=== PATIENT | female | born 1995 | race Caucasian/White ===

== ENCOUNTER 2019-03-29 11:00 | Emergency (ER) | payer BC ==
--- NOTE | 2019-03-29 11:56 | EDM.PDOC ---
ED HPI GENERAL MEDICAL PROBLEM - General Chief Complaint: Trauma Stated Complaint: 37 WKS PG AND FELL ON ICE Time Seen by Provider: 03/29/19 11:03 Source of Information: Reports: Patient - History of Present Illness INITIAL COMMENTS - FREE TEXT/NARRATIVE: Patient states that within half an hour prior to arrival, she tripped over a pipe or something similar to a pipe that was on the ground. She fell forwards. She landed on her left knee; and as she tried to get up, she struck her chin on the ground. She does not recall bumping her abdomen into the ground, but thinks she might have because she says she noticed thrown on her blouse. She denies loss of consciousness. She also denies neck or back pain. She denies abdominal pain or cramping. No vaginal bleeding or discharge. She says she is about 35 weeks she denies a sensation of contractions or pelvic pressure. Reports a 3 out of 10 headache. She says her last tetanus vaccination was a few months ago. Review of Systems - Review of Systems Review Of Systems: See Below Eyes: Denies: Blurred Vision Ears: Denies: Dizziness Nose: Denies: Epistaxis Cardiovascular: Denies: Chest Pain, Lightheadedness, Palpitations GI/Abdominal: Denies: Abdominal Pain Neurological: Reports: Headache. Denies: Confusion, Numbness, Paresthesia, Tingling ED EXAM, GENERAL - Physical Exam Exam: See Below Free Text/Narrative:: General: alert, well appearing, no acute distress HEENT: Normocephalic. Few abrasions on the anterior chin. No facial deformity , swelling, tenderness. No bony tenderness. No loose teeth. No intraoral lacerations or abrasions. Handling oral secretions well., pupils reactive, negative for conjunctival pallor or scleral icterus, mucous membranes moist, throat clear, handling oral secretions well. Neck: supple, nontender, trachea midline. Lungs: Clear to auscultation, breath sounds equal bilaterally, chest nontender. Heart: S1S2, regular, negative for clicks, rubs, or JVD. Abdomen: Soft, gravid, otherwise nondistended, nontender. Negative for masses or hepatosplenomegaly. No abrasions, ecchymoses, lacerations. Skin: warm, dry, good turgor. No abrasions apart from chin abrasions. No ecchymoses. Musculoskeletal: soft compartments. Extremities: Atraumatic, negative for cords or calf pain. Neurovascular unremarkable. Neuro: Awake, alert, oriented. Cranial nerves II through XII unremarkable. Cerebellum unremarkable. Motor and sensory unremarkable throughout. Exam nonfocal. heart tones checked during the exam and were found to be 140. Course - Vital Signs Text/Narrative:: 11:41 AM MELVIN Garcia, OB nurse, came to the emergency department. She states that patient's monitoring strip shows no contractions. heart rate 140. Normal activity 12:03pm Case d/w Melva Diaz, on-call nurse pathology technician. Accepts patient for 4 hours of monitoring. Will discharge patient from ED now, and then she will go upstairs to labor and delivery for 4 hours of monitoring. - Orders/Labs/Meds Orders: Active Orders 24 hr Category Date Time Status Communication Order [RC] STAT Care 03/29/19 11:57 Active Meds: Medications Discontinued Medications Generic Name Dose Route Start Last Admin Trade Name Freq PRN Reason Stop Dose Admin Acetaminophen 500 mg 03/29/19 11:57 Tylenol Extra Strength PO 03/29/19 11:58 ONETIME ONE Departure - Departure Time of Disposition: 12:04 Disposition: Refer to Observation Condition: Good Clinical Impression: Facial abrasion Qualifiers: Encounter type: initial encounter Qualified Code(s): S00.81XA - Abrasion of other part of head, initial encounter Headache Qualifiers: Headache type: other headache syndrome Qualified Code(s): G44.89 - Other headache syndrome - Discharge Information Instructions: Head Injury, Adult, [id number], Wound Care, Adult Referrals: Radha Pan MD [Primary Care Provider] - (Immediately upon discharge from the emergency department, please go to the labor and delivery unit. You will need to stay there for 4 hours of monitoring of your baby.) Forms: ED Department Discharge Sepsis Event Note - Focused Exam Date Exam was Performed: 03/29/19 Time Exam was Performed: 12:04 - My Orders Last 24 Hours: My Active Orders 03/29/19 11:57 Communication Order [RC] STAT - Assessment/Plan Last 24 Hours: My Active Orders 03/29/19 11:57 Communication Order [RC] STAT
[2019-03-29] MEDS ORDERED: Acetaminophen 500 MG Tab PO ONE (11:57)
== END 2019-03-29 12:15 | disposition other institution (70) ==
LOC: MW.ED 11:00
DX: O9A.213 Injury, poisoning and certain other consequences of external causes complicating pregnancy, third trimester (principal); S00.81XA Abrasion of other part of head, initial encounter; O99.353 Diseases of the nervous system complicating pregnancy, third trimester; G44.89 Other headache syndrome; Z3A.35 35 weeks gestation of pregnancy; W01.198A Fall on same level from slipping, tripping and stumbling with subsequent striking against other object, initial encounter
CPT/HCPCS: 99284; A9270; 99283

== ENCOUNTER 2019-04-11 03:49 | Inpatient (IN) | payer BC ==
[2019-04-11] MEDS ORDERED: Nalbuphine 10 MG/1 ML Vial IVPUSH PRN (04:19)
[2019-04-11] MEDS ORDERED: Misoprostol 200 MCG Tab PO PRN (04:19)
[2019-04-11] MEDS ORDERED: Carboprost Tromethamine 250 MCG/1 ML Amp IM PRN (04:19)
[2019-04-11] MEDS ORDERED: Sodium Chloride 0.9% 2.5 ML Syringe FLUSH PRN (04:19)
[2019-04-11] MEDS ORDERED: Methylergonovine 0.2 MG/1 ML Amp IM PRN ×2 (04:19→08:56)
[2019-04-11] MEDS ORDERED: Butorphanol 1 MG/ML SDV IVPUSH PRN (04:19)
[2019-04-11] MEDS ORDERED: Water For Irrigation,Sterile 1,000 ML Container IRR PRN (04:19)
[2019-04-11] MEDS ORDERED: Lidocaine 1% 50 ML MDV INJECT PRN (04:19)
[2019-04-11] MEDS ORDERED: Tranexamic Acid 1,000 MG in Sodium Chloride 0.9% 100 ML IV PRN ×2 (04:19→08:56)
[2019-04-11] MEDS ORDERED: Sodium Chloride 0.9% 10 ML SDV IV PRN (04:19)
[2019-04-11] MEDS ORDERED: Sodium Chloride 0.9% 10 ML Syringe FLUSH PRN (04:19)
[2019-04-11] MEDS ORDERED: Oxytocin/0.9 % Sodium Chloride 30 UNIT/500 ML BAG IV SCH (04:30)
[2019-04-11] MEDS ORDERED: Ondansetron 4 MG/2 ML SDV IVPUSH PRN (04:38)
[2019-04-11] MEDS ORDERED: Terbutaline 1 MG/ML SDV ONE (04:49)
[2019-04-11] MEDS: Lactated Ringers 1,000 ML IV SCH ×2 (04:57→06:01)
[2019-04-11] MEDS ORDERED: fentaNYL 100 MCG/2 ML SDV ONE (05:09)
[2019-04-11] MEDS ORDERED: Ropivacaine 0.2% PF 2 MG/ML 20 ML SDV ONE (05:09)
[2019-04-11] MEDS ORDERED: Ropivacaine HCl/PF 100 ML ONE (05:10)
--- NOTE | 2019-04-11 06:04 | PCM.PREANE ---
Preanesthetic Assessment - Procedure Proposed Procedure: BRAD - Anesthesia/Transfusion/Family Hx Anesthesia History: Prior Anesthesia Without Reaction Family History of Anesthesia Reaction: No Transfusion History: No Prior Transfusion(s) Type of Transfusion Reactions: Reports: Unknown Intubation History: Unknown Additional History: . Active labor. decel episode. Called for , HT stablized. Changed to Labor Epidural. - Review of Systems General: No Symptoms Pulmonary: No Symptoms Cardiovascular: No Symptoms Gastrointestinal: No Symptoms Neurological: No Symptoms Other: Reports: Anxiety - Physical Assessment NPO Status Date: 04/11/19 (liquids) NPO Status Time: 04:30 Vital Signs: See nurses Notes Height: 1.63 m Weight: 70.307 kg ASA Class: 2 Mental Status: Alert & Oriented x3 Airway Class: Mallampati = 1 Dentition: Reports: Normal Dentition Thyro-Mental Finger Breadths: 3 Mouth Opening Finger Breadths: 3 ROM/Head Extension: Full Lungs: Clear to Auscultation Cardiovascular: Regular Rate - Lab Values: Laboratory Last Values WBC 13.01 K/uL (4.0-11.0) H 04/11/19 04:40 RBC 4.00 M/uL (4.30-5.90) L 04/11/19 04:40 Hgb 12.4 g/dL (12.0-16.0) 04/11/19 04:40 Hct 37.1 % (36.0-46.0) 04/11/19 04:40 MCV 92.8 fL (80.0-98.0) 04/11/19 04:40 MCH 31.0 pg (27.0-32.0) 04/11/19 04:40 MCHC 33.4 g/dL (31.0-37.0) 04/11/19 04:40 RDW Std Deviation 47.7 fl (28.0-62.0) 04/11/19 04:40 RDW Coeff of Susan 14 % (11.0-15.0) 04/11/19 04:40 Plt Count 243 K/uL (150-400) 04/11/19 04:40 MPV 10.10 fL (7.40-12.00) 04/11/19 04:40 Nucleated RBC % 0.0 /100WBC 04/11/19 04:40 Nucleated RBCs # 0 K/uL 04/11/19 04:40 Membrane Rupture NEGATIVE 04/11/19 04:00 Blood Type O POSITIVE 04/11/19 04:40 Antibody Screen NEGATIVE 04/11/19 04:40 - Allergies Allergies/Adverse Reactions: Allergies Allergy/AdvReac Type Severity Reaction Status Date / Time No Known Allergies Allergy Verified 03/29/19 12:06 - Blood Blood Available: No Product(s) Available: None - Anesthesia Plan Pre-Op Medication Ordered: None - Acknowledgements Anesthesia Type Planned: Epidural Pt an Appropriate Candidate for the Planned Anesthesia: Yes Alternatives and Risks of Anesthesia Discussed w Pt/Guardian: Yes Pt/Guardian Understands and Agrees with Anesthesia Plan: Yes Additional Comments: Acceptable for procedure. Chart reviewed, ? answered, permit signed. Will proceed. PreAnesthesia Questionnaire HEENT History: Reports: None Cardiovascular History: Reports: None Respiratory History: Reports: None Gastrointestinal History: Reports: None Genitourinary History: Reports: None CUSTOMS CONSULTANT History: Reports: Musculoskeletal History: Reports: None Neurological History: Reports: None Psychiatric History: Reports: None Endocrine/Metabolic History: Reports: None Hematologic History: Reports: None Immunologic History: Reports: None Oncologic (Cancer) History: Reports: None Dermatologic History: Reports: None - Infectious Disease History Infectious Disease History: Reports: None - Past Surgical History Head Surgeries/Procedures: Reports: None HEENT Surgical History: Reports: None Cardiovascular Surgical History: Reports: None GI Surgical History: Reports: None Female Surgical History: Reports: None Neurological Surgical History: Reports: None Musculoskeletal Surgical History: Reports: None Oncologic Surgical History: Reports: None Dermatological Surgical History: Reports: None - HOME MEDS Home Medications: Home Meds Pnv No.95/Ferrous Fum/Folic AC [ Vitamin Tablet] 1 tab PO DAILY [History] - CURRENT (IN HOUSE) MEDS Current Meds: Current Medications Butorphanol Tartrate (Stadol) 1 mg IVPUSH Q1H PRN PRN Reason: Pain Carboprost Tromethamine (Hemabate Ds) 250 mcg IM ASDIRECTED PRN PRN Reason: Post Hemorrhage Tranexamic Acid 1,000 mg/ (Sodium Chloride) 110 mls @ 660 mls/hr IV ONETIME PRN PRN Reason: Bleeding Lactated Ringer's (Ringers, Lactated) 1,000 mls @ 150 mls/hr IV ASDIRECTED [facility] Last Admin: 04/11/19 04:57 Dose: 150 mls/hr Oxytocin/Sodium Chloride (Oxytocin 30 Unit/500 Ml-Ns) 30 unit in 500 mls @ 999 mls/hr IV TITRATE [facility] Lidocaine HCl (Xylocaine 1%) 50 ml INJECT ONETIME PRN PRN Reason: Laceration repair Methylergonovine Maleate (Methergine) 0.2 mg IM ASDIRECTED PRN PRN Reason: Post Hemorrhage Misoprostol (Cytotec) 200 mcg PO ONETIME PRN PRN Reason: Post Hemorrhage Nalbuphine HCl (Nubain) 10 mg IVPUSH Q1H PRN PRN Reason: Pain (severe 7-10) Ondansetron HCl (Zofran) 4 mg IVPUSH Q6H PRN PRN Reason: Nausea/Vomiting Last Admin: 04/11/19 05:04 Dose: 4 mg Sodium Chloride (Saline Flush) 10 ml FLUSH ASDIRECTED PRN PRN Reason: Keep Vein Open Sodium Chloride (Saline Flush) 2.5 ml FLUSH ASDIRECTED PRN PRN Reason: Keep Vein Open Sodium Chloride (Normal Saline) 10 ml IV ASDIRECTED PRN PRN Reason: IV Use Sterile Water (Sterile Water For Irrigation) 1,000 ml IRR ASDIRECTED PRN PRN Reason: delivery Discontinued Medications Fentanyl (Sublimaze) Confirm Administered Dose 100 mcg .ROUTE .STK-MED ONE Stop: 04/11/19 05:10 Ropivacaine (Naropin 0.2%) Confirm Administered Dose 100 mls @ as directed .ROUTE .STK-MED ONE Stop: 04/11/19 05:11 Ropivacaine (Naropin 0.2%) Confirm Administered Dose 20 ml .ROUTE .STK-MED ONE Stop: 04/11/19 05:10 Terbutaline Sulfate (Brethine) Confirm Administered Dose 1 mg .ROUTE .STK-MED ONE Stop: 04/11/19 04:50 Last Admin: 04/11/19 04:57 Dose: 0.25 mg
--- NOTE | 2019-04-11 06:17 | PCM.SN ---
- Free Text/Narrative Note: Called for STAT for decrease FHT. Upon arrival, FHT normal. , 6cm, active labor, pain 11/19. Discussed, ? answered, permit signed. Fluid bolus in progress. Procedure in sitting position. Tolerated well. No problems noted. Excellent pain control. VSS. FHT stable.
--- NOTE | 2019-04-11 08:55 | PCM.DEL ---
L & D Note - General Info Date of Service: 04/11/19 Mother's Due Date: 04/14/19 - Delivery Note Labor: Spontaneous Delivery Outcome: Livebirth Infant Delivery Method: Spontaneous Vaginal Delivery-Single Presentation: Right Occiput Anterior (VINICIO) Nuchal Cord: Reduced Prep: Other Anesthesia Type: Epidural Amniotic Fluid Description: Meconium Stained Episiotomy Type: None Laceration: None Placenta: Intact, Spontaneous Cord: 3 Vessels Estimated Blood Loss: 200 Resuscitation Needed: No : Suctioned Score 1 min: 8 Score 5 min: 9 Delivery Comments (Free Text/Narrative):: Liveborn male - General Info Date of Service: 04/11/19 - Patient Data Weight - Most Recent: 70.307 kg Lab Results Last 24 Hours: Laboratory Results - last 24 hr 04/11/19 04/11/19 04/11/19 Range/Units 04:00 04:40 04:40 WBC 13.01 H (4.0-11.0) K/uL RBC 4.00 L (4.30-5.90) M/uL Hgb 12.4 (12.0-16.0) g/dL Hct 37.1 (36.0-46.0) % MCV 92.8 (80.0-98.0) fL MCH 31.0 (27.0-32.0) pg MCHC 33.4 (31.0-37.0) g/dL RDW Std Deviation 47.7 (28.0-62.0) fl RDW Coeff of Susan 14 (11.0-15.0) % Plt Count 243 (150-400) K/uL MPV 10.10 (7.40-12.00) fL Nucleated RBC % 0.0 /100WBC Nucleated RBCs # 0 K/uL Membrane Rupture NEGATIVE Blood Type O POSITIVE Antibody Screen NEGATIVE Med Orders - Current: Current Medications Butorphanol Tartrate (Stadol) 1 mg IVPUSH Q1H PRN PRN Reason: Pain Carboprost Tromethamine (Hemabate Ds) 250 mcg IM ASDIRECTED PRN PRN Reason: Post Hemorrhage Tranexamic Acid 1,000 mg/ (Sodium Chloride) 110 mls @ 660 mls/hr IV ONETIME PRN PRN Reason: Bleeding Lactated Ringer's (Ringers, Lactated) 1,000 mls @ 150 mls/hr IV ASDIRECTED [facility] Last Admin: 04/11/19 06:01 Dose: 150 mls/hr Oxytocin/Sodium Chloride (Oxytocin 30 Unit/500 Ml-Ns) 30 unit in 500 mls @ 999 mls/hr IV TITRATE [facility] Lidocaine HCl (Xylocaine 1%) 50 ml INJECT ONETIME PRN PRN Reason: Laceration repair Methylergonovine Maleate (Methergine) 0.2 mg IM ASDIRECTED PRN PRN Reason: Post Hemorrhage Misoprostol (Cytotec) 200 mcg PO ONETIME PRN PRN Reason: Post Hemorrhage Nalbuphine HCl (Nubain) 10 mg IVPUSH Q1H PRN PRN Reason: Pain (severe 7-10) Ondansetron HCl (Zofran) 4 mg IVPUSH Q6H PRN PRN Reason: Nausea/Vomiting Last Admin: 04/11/19 05:04 Dose: 4 mg Sodium Chloride (Saline Flush) 10 ml FLUSH ASDIRECTED PRN PRN Reason: Keep Vein Open Sodium Chloride (Saline Flush) 2.5 ml FLUSH ASDIRECTED PRN PRN Reason: Keep Vein Open Sodium Chloride (Normal Saline) 10 ml IV ASDIRECTED PRN PRN Reason: IV Use Sterile Water (Sterile Water For Irrigation) 1,000 ml IRR ASDIRECTED PRN PRN Reason: delivery Discontinued Medications Fentanyl (Sublimaze) Confirm Administered Dose 100 mcg .ROUTE .STK-MED ONE Stop: 04/11/19 05:10 Ropivacaine (Naropin 0.2%) Confirm Administered Dose 100 mls @ as directed .ROUTE .STK-MED ONE Stop: 04/11/19 05:11 Ropivacaine (Naropin 0.2%) Confirm Administered Dose 20 ml .ROUTE .STK-MED ONE Stop: 04/11/19 05:10 Terbutaline Sulfate (Brethine) Confirm Administered Dose 1 mg .ROUTE .STK-MED ONE Stop: 04/11/19 04:50 Last Admin: 04/11/19 04:57 Dose: 0.25 mg - Problem List & Annotations (1) Vaginal delivery SNOMED Code(s): 892841939 Code(s): O80 - ENCOUNTER FOR FULL-TERM UNCOMPLICATED DELIVERY Status: Acute Current Visit: Yes - Problem List Review Problem List Initiated/Reviewed/Updated: Yes - My Orders Last 24 Hours: My Active Orders 04/11/19 04:12 Resuscitation Status Routine 04/11/19 04:13 Up ad Sailaja [RC] ASDIRECTED Vital Signs [RC] PER UNIT ROUTINE 04/11/19 04:19 Patient Status [ADT] Routine May Shower [RC] ASDIRECTED Notify Provider [RC] PRN Vital Signs [RC] PER UNIT ROUTINE Butorphanol [Stadol] 1 mg IVPUSH Q1H PRN Carboprost Tromethamine [Hemabate DS] 250 mcg IM ASDIRECTED PRN Lidocaine 1% [Xylocaine 1%] 50 ml INJECT ONETIME PRN Methylergonovine [Methergine] 0.2 mg IM ASDIRECTED PRN Nalbuphine [Nubain] 10 mg IVPUSH Q1H PRN Sodium Chloride 0.9% [Normal Saline] 10 ml IV ASDIRECTED PRN Sodium Chloride 0.9% [Saline Flush] 10 ml FLUSH ASDIRECTED PRN Sodium Chloride 0.9% [Saline Flush] 2.5 ml FLUSH ASDIRECTED PRN Tranexamic Acid [Cyklokapron] 1,000 mg Sodium Chloride 0.9% [Normal Saline] 100 ml IV ONETIME Water For Irrigation,Sterile [Sterile Water for Irrigation] 1,000 ml IRR ASDIRECTED PRN miSOPROStoL [Cytotec] 200 mcg PO ONETIME PRN Scalp Electrode [WOMSER] Per Unit Routine Peripheral IV Insertion Adult [OM.PC] Routine 04/11/19 04:30 Lactated Ringers [Ringers, Lactated] 1,000 ml IV ASDIRECTED Oxytocin/0.9 % Sodium Chloride [Oxytocin 30 Unit/500 ML-NS] 30 unit in 500 ml IV TITRATE 04/11/19 04:38 Ondansetron [Zofran] 4 mg IVPUSH Q6H PRN 04/11/19 04:40 RPR (SYPHILIS SERO) W/ RFLX [REF] Routine
[2019-04-11] MEDS ORDERED: Benzocaine/Menthol 20%-0.5% Spray 78 GM Cannister TOP PRN (08:56)
[2019-04-11] MEDS ORDERED: Witch Hazel Medicated Pads 40/Jar TOP PRN (08:56)
[2019-04-11] MEDS ORDERED: oxyCODONE 5 MG Tab PO PRN (08:56)
[2019-04-11] MEDS ORDERED: Bisacodyl 10 MG Supp RECTAL PRN (08:56)
[2019-04-11] MEDS ORDERED: Lanolin 100% Cream 7 GM Tube TOP PRN (08:56)
[2019-04-11] MEDS ORDERED: Acetaminophen 500 MG Tab PO PRN ×2 (08:56)
[2019-04-11] MEDS ORDERED: Ibuprofen 400 MG Tab PO PRN (08:56)
[2019-04-11] MEDS ORDERED: Docusate Sodium 100 MG Cap PO PRN (08:56)
--- NOTE | 2019-04-11 10:33 | PCM48HPAN ---
Post Anesthesia Note - EVALUATION WITHIN 48HRS OF ANESTHETIC Vital Signs in Normal Range: Yes Patient Participated in Evaluation: Yes Respiratory Function Stable: Yes Airway Patent: Yes Cardiovascular Function Stable: Yes Hydration Status Stable: Yes Pain Control Satisfactory: Yes Nausea and Vomiting Control Satisfactory: Yes Mental Status Recovered: Yes Vital Signs: Stable - COMMENTS/OBSERVATIONS Free Text/Narrative:: Doing well. Delivered without issues.
--- NOTE | 2019-04-11 14:15 | OR ---
SURGEON: Kristin Dunaway M.D. DATE OF PROCEDURE: 04/11/2019 PREOPERATIVE DIAGNOSES: 38-4/7 weeks' intrauterine , active spontaneous labor. POSTOPERATIVE DIAGNOSES: 38-4/7 weeks' intrauterine , active spontaneous labor. PROCEDURE: Term spontaneous vaginal delivery. ANESTHESIA: Epidural. ESTIMATED BLOOD LOSS: Less than 300 mL. FINDINGS: Live born male. score 8 and 9. Weight is pending at the time of dictation. Placenta delivered spontaneously. Schultze intact with 3 vessels. Perineum intact. COMPLICATIONS: None known. DISPOSITION: Mother and baby in LDR in good condition. HISTORY OF PRESENT ILLNESS: This is a 23-year-old female, G1, P0. She presents in active spontaneous labor, 3 to 4 cm dilated. She noted having a gush of fluid at home. The described it as yellow and, although, AmniSure was negative, she was clearly in active labor. She was admitted for labor management. She has had her care at [facility] with Dr. Radha Pan. records have been obtained. She has had good care. labs include blood type O positive, rubella immune, RPR negative, hep B negative, HIV negative, normal Pap in 2017. Gonorrhea and chlamydia negative. Urine culture negative. Quad screen normal. Glucola elevated at 176, normal 3-hour glucose tolerance test. Group B strep negative. She was admitted to Labor and Delivery. She was having contractions every 1 to 2 minutes upon admission. She was in large amount of pain. She had variable decelerations from the time of admission and then when she was 5 to 6 cm dilated, she had a deep prolonged 8-minute deceleration to the 60s, which at 5 minutes, I did notify the OR team and requested their presence. She was placed in knee-chest position. She received terbutaline and oxygen, and heart tones recovered and overall remained category 1 throughout the remainder of labor. She did receive an epidural for pain control, and she progressed to complete. DESCRIPTION OF PROCEDURE: With the patient in dorsal lithotomy position, the patient pushed over a 10- minute time period to a 5+ station, at which time, the head was delivered spontaneously and atraumatically over the perineum with support with subsequent delivery of the infant's shoulders and body without any difficulty. The infant was bulb suctioned by nose and mouth. The cord was clamped x2 and cut after 2 minutes of life. The cord blood was collected for cord ABGs as well as routine cord blood sampling. Pitocin was initiated after delivery of the infant to assist with delivery of the placenta, which was delivered spontaneously. Schultze intact with 3 vessels. Upon inspection of the pelvis and perineum, there were no periurethral, vaginal sidewall, cervical, rectal, or perineal lacerations. EBL was less than 200 mL. There were no known complications. Mother and baby remained in LDR in good condition. SHAVONNE CHILDERS /[id number]
[2019-04-11] MEDS: Ibuprofen 800 MG Tab PO PRN (16:29)
[2019-04-12] MEDS: Ibuprofen 800 MG Tab PO PRN ×2 (03:26→09:41)
--- NOTE | 2019-04-12 08:43 | PCM.PNPP ---
- General Info Date of Service: 04/12/19 Functional Status: Reports: Pain Controlled, Tolerating Diet, Ambulating, Urinating - Review of Systems General: Reports: No Symptoms HEENT: Reports: No Symptoms Pulmonary: Reports: No Symptoms Cardiovascular: Reports: No Symptoms Gastrointestinal: Reports: No Symptoms Genitourinary: Reports: No Symptoms Musculoskeletal: Reports: No Symptoms Skin: Reports: No Symptoms Neurological: Reports: No Symptoms Psychiatric: Reports: No Symptoms - General Info Date of Service: 04/12/19 - Patient Data Vital Signs - Most Recent: Last Vital Signs Temp 36.3 C 04/12/19 03:47 Pulse 60 04/12/19 03:47 Resp 17 04/12/19 03:47 BP 116/70 04/12/19 03:47 Pulse Ox 97 04/12/19 03:47 Weight - Most Recent: 70.307 kg I&O - Last 24 Hours: Intake & Output 04/11/19 04/12/19 04/12/19 22:59 06:59 14:59 Intake Total 2 Balance 2 Lab Results - Last 24 Hours: Laboratory Results - last 24 hr 04/11/19 04/11/19 04/12/19 Range/Units 08:14 09:58 04:45 Hgb 10.9 L (12.0-16.0) g/dL Hct 33.4 L (36.0-46.0) % Cord ABG pH 7.225 (7.18-7.38) Cord ABG Base Excess -4 (-10--2) Cord VBG pH 7.287 (7.25-7.45) Cord VBG Base Excess -6 (-10--2) Screen Cancelled RhIG Candidate? Cancelled Rhogam Indicated YES, BABY RH POS H KB Screen SEE NOTE KB Cells Counted 2 KB Red Cells Counted 2011 KB % Cells 0.10 Doses of RhIg Required 1 Med Orders - Current: Current Medications Acetaminophen (Tylenol Extra Strength) 500 mg PO Q4H PRN PRN Reason: Pain Acetaminophen (Tylenol Extra Strength) 1,000 mg PO Q4H PRN PRN Reason: Pain Last Admin: 04/11/19 20:07 Dose: 1,000 mg Benzocaine/Menthol (Dermoplast Pain Relief 20%-0.5% [place]) 78 gm TOP ASDIRECTED PRN PRN Reason: Perineal Comfort Measure Last Admin: 04/11/19 09:59 Dose: 78 gm Bisacodyl (Dulcolax) 10 mg RECTAL ONETIME PRN PRN Reason: Constipation Docusate Sodium (Colace) 100 mg PO BID PRN PRN Reason: Constipation Last Admin: 04/11/19 20:08 Dose: 100 mg Emollient Ointment (Lansinoh Hpa) 0 gm TOP ASDIRECTED PRN PRN Reason: Sore Nipples Last Admin: 04/11/19 10:00 Dose: 7 gm Tranexamic Acid 1,000 mg/ (Sodium Chloride) 110 mls @ 660 mls/hr IV ONETIME PRN PRN Reason: Bleeding Ibuprofen (Motrin) 400 mg PO Q4H PRN PRN Reason: Pain Ibuprofen (Motrin) 800 mg PO Q6H PRN PRN Reason: Pain Last Admin: 04/12/19 03:26 Dose: 800 mg Methylergonovine Maleate (Methergine) 0.2 mg IM ONETIME PRN PRN Reason: Excessive Vaginal Bleeding Oxycodone HCl (Oxycodone) 5 mg PO Q2H PRN PRN Reason: Pain Witch Edith (Tucks) 1 pad TOP ASDIRECTED PRN PRN Reason: comfort care Last Admin: 04/11/19 20:07 Dose: 1 tub Discontinued Medications Butorphanol Tartrate (Stadol) 1 mg IVPUSH Q1H PRN PRN Reason: Pain Carboprost Tromethamine (Hemabate Ds) 250 mcg IM ASDIRECTED PRN PRN Reason: Post Hemorrhage Fentanyl (Sublimaze) Confirm Administered Dose 100 mcg .ROUTE .STK-MED ONE Stop: 04/11/19 05:10 Tranexamic Acid 1,000 mg/ (Sodium Chloride) 110 mls @ 660 mls/hr IV ONETIME PRN PRN Reason: Bleeding Lactated Ringer's (Ringers, Lactated) 1,000 mls @ 150 mls/hr IV ASDIRECTED [facility] Last Admin: 04/11/19 06:01 Dose: 150 mls/hr Oxytocin/Sodium Chloride (Oxytocin 30 Unit/500 Ml-Ns) 30 unit in 500 mls @ 999 mls/hr IV TITRATE [facility] Last Admin: 04/11/19 08:15 Dose: 999 mls/hr Ropivacaine (Naropin 0.2%) Confirm Administered Dose 100 mls @ as directed .ROUTE .Digiting ONE Stop: 04/11/19 05:11 Lidocaine HCl (Xylocaine 1%) 50 ml INJECT ONETIME PRN PRN Reason: Laceration repair Methylergonovine Maleate (Methergine) 0.2 mg IM ASDIRECTED PRN PRN Reason: Post Hemorrhage Misoprostol (Cytotec) 200 mcg PO ONETIME PRN PRN Reason: Post Hemorrhage Nalbuphine HCl (Nubain) 10 mg IVPUSH Q1H PRN PRN Reason: Pain (severe 7-10) Ondansetron HCl (Zofran) 4 mg IVPUSH Q6H PRN PRN Reason: Nausea/Vomiting Last Admin: 04/11/19 05:04 Dose: 4 mg Ropivacaine (Naropin 0.2%) Confirm Administered Dose 20 ml .ROUTE .Digiting ONE Stop: 04/11/19 05:10 Sodium Chloride (Saline Flush) 10 ml FLUSH ASDIRECTED PRN PRN Reason: Keep Vein Open Sodium Chloride (Saline Flush) 2.5 ml FLUSH ASDIRECTED PRN PRN Reason: Keep Vein Open Sodium Chloride (Normal Saline) 10 ml IV ASDIRECTED PRN PRN Reason: IV Use Sterile Water (Sterile Water For Irrigation) 1,000 ml IRR ASDIRECTED PRN PRN Reason: delivery Last Admin: 04/11/19 08:15 Dose: 1,000 ml Terbutaline Sulfate (Brethine) Confirm Administered Dose 1 mg .ROUTE .Digiting ONE Stop: 04/11/19 04:50 Last Admin: 04/11/19 04:57 Dose: 0.25 mg - Interaction Support Person: Significant Other - Recovery Exam Fundal Tone: Firm Fundal Level: At Umbilicus Fundal Placement: Midline Lochia Amount: Scant Lochia Color: Rubra/Red Perineum Description: Intact, Minimal Bruising/Swelling Episiotomy/Laceration: None Bladder Status: Voiding - Exam General: Alert HEENT: Pupils Equal Neck: Supple Lungs: Clear to Auscultation Cardiovascular: Regular Rate, Regular Rhythm GI/Abdominal Exam: Normal Bowel Sounds Extremities: Normal Inspection - Problem List & Annotations (1) Vaginal delivery SNOMED Code(s): 204294048 Code(s): O80 - ENCOUNTER FOR FULL-TERM UNCOMPLICATED DELIVERY Status: Acute Current Visit: Yes - Problem List Review Problem List Initiated/Reviewed/Updated: Yes - Assessment Assessment:: 23yo P1 s/p PPD 1 - Plan Plan:: Routine Discharge home today
== END 2019-04-12 14:45 | disposition home or self-care (01) | DRG 560 ==
LOC: MW.OBCHECK 03:49 → MW.OB 03:50 → MW.OBCHECK 04:18 → MW.OB 04:19 → OBSVTOIN 08:14 → MW.OB 14:14
PROVIDERS: ADMIT Obstetrics & Gynecology; ATTEND Obstetrics & Gynecology
PROC: 10E0XZZ Delivery of Products of Conception, External Approach (ICD-10-PCS; principal; 2019-04-11)
PROC: 3E0R3BZ Introduction of Anesthetic Agent into Spinal Canal, Percutaneous Approach (ICD-10-PCS; 2019-04-11)
DX: O77.0 Labor and delivery complicated by meconium in amniotic fluid (principal); Z3A.39 39 weeks gestation of pregnancy; Z37.0 Single live birth; O76 Abnormality in fetal heart rate and rhythm complicating labor and delivery
CPT/HCPCS: 36415; 36430; 51702; 59025; 59409; 82803; 84112; 85014; 85018; 85027; 85460; 86592; 86593; 86850; 86900; 86901; A9270-GY; J2405; J2590; J2792; J2795; J3010; J3105; J7120

== ENCOUNTER 2020-06-19 07:34 | Inpatient (IN) | payer BC ==
[2020-06-19] MEDS ORDERED: Ondansetron 4 MG/2 ML SDV IVPUSH PRN (08:25)
[2020-06-19] MEDS ORDERED: Ropivacaine HCl/PF 100 ML ONE (08:25)
[2020-06-19] MEDS ORDERED: Sodium Chloride 0.9% 2.5 ML Syringe FLUSH PRN (08:25)
[2020-06-19] MEDS ORDERED: Sodium Chloride 0.9% 10 ML Syringe FLUSH PRN (08:25)
[2020-06-19] MEDS ORDERED: Lidocaine 1% 50 ML MDV INJECT PRN (08:25)
[2020-06-19] MEDS ORDERED: Methylergonovine 0.2 MG/1 ML Amp IM PRN (08:25)
[2020-06-19] MEDS ORDERED: Water For Irrigation,Sterile 1,000 ML Container IRR PRN (08:25)
[2020-06-19] MEDS ORDERED: Nalbuphine 10 MG/1 ML Vial IVPUSH PRN (08:25)
[2020-06-19] MEDS ORDERED: Misoprostol 200 MCG Tab PO PRN (08:25)
[2020-06-19] MEDS ORDERED: Sodium Chloride 0.9% 10 ML SDV IV PRN (08:25)
[2020-06-19] MEDS ORDERED: Carboprost Tromethamine 250 MCG/1 ML Amp IM PRN (08:25)
[2020-06-19] MEDS ORDERED: Tranexamic Acid 1,000 MG in Sodium Chloride 0.9% 100 ML IV PRN (08:25)
[2020-06-19] MEDS ORDERED: fentaNYL 100 MCG/2 ML SDV ONE (08:25)
[2020-06-19] MEDS ORDERED: Butorphanol 1 MG/ML SDV IVPUSH PRN (08:25)
[2020-06-19] MEDS: Lactated Ringers 1,000 ML IV SCH ×2 (08:30→10:30)
[2020-06-19] MEDS ORDERED: Oxytocin/0.9 % Sodium Chloride 30 UNIT/500 ML BAG IV SCH (08:30)
--- NOTE | 2020-06-19 08:44 | PCM.PREANE ---
Preanesthetic Assessment - Anesthesia/Transfusion/Family Hx Anesthesia History: Prior Anesthesia Without Reaction Family History of Anesthesia Reaction: No - Physical Assessment NPO Status Date: 06/19/20 NPO Status Time: 04:00 Height: 1.63 m Weight: 68.039 kg ASA Class: 2 - Allergies Allergies/Adverse Reactions: Allergies Allergy/AdvReac Type Severity Reaction Status Date / Time No Known Allergies Allergy Verified 06/19/20 07:51 - Acknowledgements Anesthesia Type Planned: Epidural Pt an Appropriate Candidate for the Planned Anesthesia: Yes Alternatives and Risks of Anesthesia Discussed w Pt/Guardian: Yes Pt/Guardian Understands and Agrees with Anesthesia Plan: Yes PreAnesthesia Questionnaire - CURRENT (IN HOUSE) MEDS Current Meds: Current Medications Butorphanol Tartrate (Butorphanol 1 Mg/Ml Sdv) 1 mg IVPUSH Q1H PRN PRN Reason: Pain Carboprost Tromethamine (Carboprost Tromethamine 250 Mcg/1 Ml Amp) 250 mcg IM ASDIRECTED PRN PRN Reason: Post Hemorrhage Lactated Ringer's (Ringers, Lactated) 1,000 mls @ 150 mls/hr IV ASDIRECTED RODDY Oxytocin/Sodium Chloride (Oxytocin 30 Unit/500 Ml-Ns) 30 unit in 500 mls @ 999 mls/hr IV TITRATE RODDY Tranexamic Acid 1,000 mg/ (Sodium Chloride) 110 mls @ 660 mls/hr IV ONETIME PRN PRN Reason: Bleeding Lidocaine HCl (Lidocaine 1% 50 Ml Mdv) 50 ml INJECT ONETIME PRN PRN Reason: Laceration repair Methylergonovine Maleate (Methylergonovine 0.2 Mg/1 Ml Amp) 0.2 mg IM ASDIRECTED PRN PRN Reason: Post Hemorrhage Misoprostol (Misoprostol 200 Mcg Tab) 200 mcg PO ONETIME PRN PRN Reason: Post Hemorrhage Nalbuphine HCl (Nalbuphine 10 Mg/1 Ml Vial) 10 mg IVPUSH Q1H PRN PRN Reason: Pain (severe 7-10) Ondansetron HCl (Ondansetron 4 Mg/2 Ml Sdv) 4 mg IVPUSH Q4H PRN PRN Reason: Nausea/Vomiting Sodium Chloride (Sodium Chloride 0.9% 10 Ml Syringe) 10 ml FLUSH ASDIRECTED PRN PRN Reason: Keep Vein Open Sodium Chloride (Sodium Chloride 0.9% 2.5 Ml Syringe) 2.5 ml FLUSH ASDIRECTED PRN PRN Reason: Keep Vein Open Sodium Chloride (Sodium Chloride 0.9% 10 Ml Sdv) 10 ml IV ASDIRECTED PRN PRN Reason: IV Use Sterile Water (Water For Irrigation,Sterile 1,000 Ml Container) 1,000 ml IRR ASDIRECTED PRN PRN Reason: delivery Discontinued Medications Fentanyl (Fentanyl 100 Mcg/2 Ml Sdv) Confirm Administered Dose 100 mcg .ROUTE .STK-MED ONE Stop: 06/19/20 08:26 Ropivacaine (Naropin 0.2%) Confirm Administered Dose 100 mls @ as directed .ROUTE .STK-MED ONE Stop: 06/19/20 08:26
[2020-06-19] MEDS ORDERED: Phenylephrine/Normal Saline 100 MCG/ML 10 ML Syringe IVPUSH PRN (08:48)
[2020-06-19] MEDS ORDERED: ePHEDrine 50 MG/ML SDV IVPUSH PRN (08:48)
--- NOTE | 2020-06-19 08:48 | PCM.PRNOTE ---
- Free Text/Narrative Note: Anes NOte Patient requests epidural for L&D. Sitting position, level l3-l4 midline approach. Sterile technique. Chloraprep scrub to lumbar area. Sterile fenestrated drape applied. Epidural space easily achieved single attempt woth ease using NALLELY technique. NALLELY at 2 cm. Cath threaded 5 cm with ease. Cath secured at skin using sterile clear adhesive dressing. Test 0833 3 cc 1.%lido with epi negative. 0836 load 10 cc 0.2% ropivicaine with 1 mcg cc fentanyl in slow divided doses. 0842 Pumps started with 90 cc same solution. Rate is 8 cc hr with 6 cc q 20 min prn bolus. Jodi well. Time with patient [id number] Jnoas Barrientos POLICE ARTIST
--- NOTE | 2020-06-19 09:31 | PCM.LDHP ---
L&D History of Present Illness - General Date of Service: 06/19/20 Admit Problem/Dx: Patient Status Order with Admit Dx/Problem 06/19/20 07:52 Patient Status [ADT] Routine 06/19/20 08:26 Patient Status [ADT] Routine Admission Diagnosis/Problem Admission Diagnosis/Problem - History of Present Illness Introduction:: 24yo at 40w2d presenting with contractions. Patient started theodroe at home this morning around 6.30AM, became stronger and every 2-3min. She noticed some leakage of clear fluid also. has been uncomplicated. GBS is negative. She had close conception, previously had a at term last year. - Related Data Allergies/Adverse Reactions: Allergies Allergy/AdvReac Type Severity Reaction Status Date / Time No Known Allergies Allergy Verified 06/19/20 07:51 H&P Review of Systems - Review of Systems: Review Of Systems: See Below General: Reports: No Symptoms HEENT: Reports: No Symptoms Pulmonary: Reports: No Symptoms Cardiovascular: Reports: No Symptoms Gastrointestinal: Reports: No Symptoms Genitourinary: Reports: No Symptoms Musculoskeletal: Reports: No Symptoms Skin: Reports: No Symptoms Psychiatric: Reports: No Symptoms Neurological: Reports: No Symptoms Hematologic/Lymphatic: Reports: No Symptoms Immunologic: Reports: No Symptoms L&D Exam - Exam Exam: See Below - Vital Signs Weight: 150 lb - OB Specific Contraction Frequency (min): 2-3 Contraction Intensity: Strong Movement: Active Heart Tones per Min: 120 Heart Rate (FHR) Variability: Moderate (6-25 bmp) Estimated Weight: 7.5lbs - Exam General: Alert, Oriented, Cooperative HEENT: Conjunctiva Clear, Mucosa Moist & [place] Neck: Supple, Trachea Midline Lungs: Normal Respiratory Effort GI/Abdominal Exam: Soft, Non-Tender, No Distention Rectal Exam: Normal Exam Genitourinary: Normal external exam, Other (Cervix 9/90/0, bulging membranes) Back Exam: Normal Inspection Extremities: Normal Inspection, Normal Range of Motion, Non-Tender, No Pedal Edema Skin: Warm, Dry, Intact Psychiatric: Alert, Normal Affect, Normal Mood - Patient Data Lab Results Last 24 hrs: Laboratory Results - last 24 hr 06/19/20 Range/Units 07:45 Membrane Rupture NEGATIVE Problem List Initiated/Reviewed/Updated: Yes Orders Last 24hrs: Active Orders 24 hr Category Date Time Status Patient Status [ADT] Routine ADT 06/19/20 07:52 Active Patient Status [ADT] Routine ADT 06/19/20 08:26 Active Heart Tones [RC] CONTINUOUS Care 06/19/20 08:26 Active Non Stress Test [RC] PER UNIT ROUTINE Care 06/19/20 07:52 Active May Shower [RC] ASDIRECTED Care 06/19/20 08:26 Active Notify Provider [RC] PRN Care 06/19/20 08:26 Active Up ad Sailaja [RC] ASDIRECTED Care 06/19/20 07:52 Active Up ad Sailaja [RC] ASDIRECTED Care 06/19/20 08:26 Active Vaginal Exam [RC] Click to Edit Care 06/19/20 07:52 Active Vital Signs [RC] PER UNIT ROUTINE Care 06/19/20 07:52 Active Vital Signs [RC] PER UNIT ROUTINE Care 06/19/20 08:26 Active CBC W/O DIFF,HEMOGRAM [HEME] Routine Lab 06/19/20 09:04 Received CORONAVIRUS COVID-19 VINOD [MOLEC] Routine Lab 06/19/20 08:22 Received RPR (SYPHILIS SERO) W/ RFLX [REF] Routine Lab 06/19/20 08:26 Received TYPE AND SCREEN [BBK] Routine Lab 06/19/20 09:08 Received Butorphanol [Stadol] Med 06/19/20 08:25 Active 1 mg IVPUSH Q1H PRN Carboprost Tromethamine [Hemabate DS] Med 06/19/20 08:25 Active 250 mcg IM ASDIRECTED PRN Lactated Ringers [Ringers, Lactated] 1,000 ml Med 06/19/20 08:30 Active IV ASDIRECTED Lidocaine 1% [Xylocaine 1%] Med 06/19/20 08:25 Active 50 ml INJECT ONETIME PRN Methylergonovine [Methergine] Med 06/19/20 08:25 Active 0.2 mg IM ASDIRECTED PRN Nalbuphine [Nubain] Med 06/19/20 08:25 Active 10 mg IVPUSH Q1H PRN Ondansetron [Zofran] Med 06/19/20 08:25 Active 4 mg IVPUSH Q4H PRN Oxytocin/0.9 % Sodium Chloride [Oxytocin 30 Unit/500 ML Med 06/19/20 08:30 Active -NS] 30 unit in 500 ml IV TITRATE Phenylephrine/Normal Saline [Phenylephrine in NS 100 Med 06/19/20 08:48 Active MCG/ML] 0.1 mg IVPUSH Q5M PRN Sodium Chloride 0.9% [Normal Saline] Med 06/19/20 08:25 Active 10 ml IV ASDIRECTED PRN Sodium Chloride 0.9% [Saline Flush] Med 06/19/20 08:25 Active 10 ml FLUSH ASDIRECTED PRN Sodium Chloride 0.9% [Saline Flush] Med 06/19/20 08:25 Active 2.5 ml FLUSH ASDIRECTED PRN Tranexamic Acid [Cyklokapron] 1,000 mg Med 06/19/20 08:25 Active Sodium Chloride 0.9% [Normal Saline] 100 ml IV ONETIME Water For Irrigation,Sterile [Sterile Water for Med 06/19/20 08:25 Active Irrigation] 1,000 ml IRR ASDIRECTED PRN ePHEDrine [ePHEDrine sulfate] Med 06/19/20 08:48 Active 10 mg IVPUSH Q5M PRN miSOPROStoL [Cytotec] Med 06/19/20 08:25 Active 200 mcg PO ONETIME PRN Scalp Electrode [WOMSER] Per Unit Routine Oth 06/19/20 08:26 Ordered Peripheral IV Insertion Adult [OM.PC] Routine Oth 06/19/20 08:26 Ordered Resuscitation Status Routine Resus Stat 06/19/20 07:52 Ordered Medication Orders Butorphanol Tartrate (Butorphanol 1 Mg/Ml Sdv) 1 mg IVPUSH Q1H PRN PRN Reason: Pain Carboprost Tromethamine (Carboprost Tromethamine 250 Mcg/1 Ml Amp) 250 mcg IM ASDIRECTED PRN PRN Reason: Post Hemorrhage Ephedrine Sulfate (Ephedrine 50 Mg/Ml Sdv) 10 mg IVPUSH Q5M PRN PRN Reason: Hypotension Lactated Ringer's (Ringers, Lactated) 1,000 mls @ 150 mls/hr IV ASDIRECTED RODDY Last Admin: 06/19/20 08:30 Dose: 500 mls/hr Documented by: BOLSSAC Oxytocin/Sodium Chloride (Oxytocin 30 Unit/500 Ml-Ns) 30 unit in 500 mls @ 999 mls/hr IV TITRATE RODDY Tranexamic Acid 1,000 mg/ (Sodium Chloride) 110 mls @ 660 mls/hr IV ONETIME PRN PRN Reason: Bleeding Lidocaine HCl (Lidocaine 1% 50 Ml Mdv) 50 ml INJECT ONETIME PRN PRN Reason: Laceration repair Methylergonovine Maleate (Methylergonovine 0.2 Mg/1 Ml Amp) 0.2 mg IM ASDIRECTED PRN PRN Reason: Post Hemorrhage Misoprostol (Misoprostol 200 Mcg Tab) 200 mcg PO ONETIME PRN PRN Reason: Post Hemorrhage Nalbuphine HCl (Nalbuphine 10 Mg/1 Ml Vial) 10 mg IVPUSH Q1H PRN PRN Reason: Pain (severe 7-10) Ondansetron HCl (Ondansetron 4 Mg/2 Ml Sdv) 4 mg IVPUSH Q4H PRN PRN Reason: Nausea/Vomiting Last Admin: 06/19/20 08:50 Dose: 4 mg Documented by: BOLSSAC Phenylephrine HCl (Phenylephrine/Normal Saline 100 Mcg/Ml 10 Ml Syringe) 0.1 mg IVPUSH Q5M PRN PRN Reason: Hypotension Sodium Chloride (Sodium Chloride 0.9% 10 Ml Syringe) 10 ml FLUSH ASDIRECTED PRN PRN Reason: Keep Vein Open Sodium Chloride (Sodium Chloride 0.9% 2.5 Ml Syringe) 2.5 ml FLUSH ASDIRECTED PRN PRN Reason: Keep Vein Open Sodium Chloride (Sodium Chloride 0.9% 10 Ml Sdv) 10 ml IV ASDIRECTED PRN PRN Reason: IV Use Sterile Water (Water For Irrigation,Sterile 1,000 Ml Container) 1,000 ml IRR ASDIRECTED PRN PRN Reason: delivery Assessment/Plan Comment:: 24yo at 40w2d presenting in active labor, reassuring maternal and status. - Admitted to L&D, Admission labs with CBC, T&S, COVID 19 test -GBS negative - Cat 1 tracing - s/p epidural per patient request, anesthesia consulted - anticipate vaginal delivery
[2020-06-19] MEDS ORDERED: Bisacodyl 10 MG Supp RECTAL PRN (11:45)
[2020-06-19] MEDS ORDERED: Lanolin 100% Cream 7 GM Tube TOP PRN (11:45)
[2020-06-19] MEDS ORDERED: Witch Hazel Medicated Pads 40/Jar TOP PRN (11:45)
[2020-06-19] MEDS ORDERED: oxyCODONE 5 MG Tab PO PRN (11:45)
[2020-06-19] MEDS ORDERED: Acetaminophen 500 MG Tab PO PRN (11:45)
[2020-06-19] MEDS ORDERED: Ibuprofen 400 MG Tab PO PRN (11:45)
[2020-06-19] MEDS ORDERED: Benzocaine/Menthol 20%-0.5% Spray 78 GM Cannister TOP PRN (11:45)
[2020-06-19] MEDS ORDERED: Docusate Sodium 100 MG Cap PO PRN (11:45)
[2020-06-19] MEDS: Ibuprofen 800 MG Tab PO PRN ×2 (15:01→22:41)
[2020-06-19] MEDS: Acetaminophen 500 MG Tab PO PRN (19:20)
--- NOTE | 2020-06-19 20:03 | OR ---
SURGEON: Garfield Yuan MD DATE OF PROCEDURE: 06/19/2020 INDICATION FOR PROCEDURE: A 24-year-old G2, P1-0-0-1 at 40 weeks and 3 days, presenting with labor. The patient reports contractions starting around 6:30 that has become increasingly stronger and more frequent. Her was complicated by short interpregnancy interval with a term vaginal delivery last year. She is GBS negative. She was found to be 5 to 6 cm dilated and admitted to Labor and Delivery. She continued to make cervical change quickly on her own and the heart rate tracing was category I. She received an epidural for pain control. She became 9/90/0 and AROM was performed with clear fluid. She became fully dilated with pelvic pressure started pushing with contractions. PREOPERATIVE DIAGNOSIS: 1. Staley intrauterine at 40 weeks and 3 days. POSTOPERATIVE DIAGNOSES: 1. Staley intrauterine at 40 weeks and 3 days. 2. Shoulder dystocia. PROCEDURE PERFORMED: Normal spontaneous vaginal delivery. ANESTHESIA: Epidural. ANESTHESIOLOGIST: Dr. Lowell Johnson. FINDINGS: Viable male infant. score of 8 and 9. weight of 4290g. There was a 15 second shoulder dystocia, reduced with Todd, fundal pressure and rotating the anterior shoulder. ESTIMATED BLOOD LOSS: 200 mL. DESCRIPTION OF PROCEDURE: The patient pushed with contractions for approximately 1-1/2 hours with good descent. head delivered in occiput anterior position over intact perineum, rotated LOT, anterior shoulder did not deliver with downward traction. Exam noted a shoulder dystocia with the right shoulder. Todd procedure was performed and the anterior shoulder was manually rotated counterclockwise away from the pubic bone and the baby delivered with downward traction after about 15 seconds. The posterior shoulder and body delivered without difficulty. No nuchal cord was noted. The baby was placed on maternal chest and evaluated by awaiting nursery staff. The baby was pink, crying, and moving all extremities immediately delivery. The umbilical cord was clamped and cut after 60 seconds and no longer pulsating. Umbilical cord gases were obtained. The placenta was removed with gentle traction on the umbilical cord. It was examined and found to be intact with 3- vessel cord. The vagina and perineum were examined and no lacerations were noted. Fundal massage was performed and the uterus was firm at the umbilicus, and the bleeding was light. The patient tolerated the procedure well, was given care instructions. JD CHILDERS /[id number] MTDD
[2020-06-20] MEDS: Acetaminophen 500 MG Tab PO PRN ×2 (02:07→09:15)
[2020-06-20] MEDS: Ibuprofen 800 MG Tab PO PRN (04:35)
--- NOTE | 2020-06-20 06:52 | PCM48HPAN ---
Post Anesthesia Note - EVALUATION WITHIN 48HRS OF ANESTHETIC Vital Signs in Normal Range: Yes Patient Participated in Evaluation: Yes Respiratory Function Stable: Yes Airway Patent: Yes Cardiovascular Function Stable: Yes Hydration Status Stable: Yes Pain Control Satisfactory: Yes Nausea and Vomiting Control Satisfactory: Yes Mental Status Recovered: Yes Vital Signs: Last Vital Signs Temp 35.6 C L 06/20/20 04:00 Pulse 67 06/20/20 04:00 Resp 20 06/20/20 04:00 BP 101/55 L 06/20/20 04:00 Pulse Ox 97 06/20/20 04:00
--- NOTE | 2020-06-20 08:41 | PCM.PNPP ---
- General Info Date of Service: 06/20/20 Functional Status: Reports: Pain Controlled, Tolerating Diet, Ambulating, Urinating - Review of Systems General: Reports: No Symptoms HEENT: Reports: No Symptoms Pulmonary: Reports: No Symptoms Cardiovascular: Reports: No Symptoms Gastrointestinal: Reports: No Symptoms Genitourinary: Reports: No Symptoms Musculoskeletal: Reports: No Symptoms Skin: Reports: No Symptoms Neurological: Reports: No Symptoms Psychiatric: Reports: No Symptoms - Patient Data Vital Signs - Most Recent: Last Vital Signs Temp 36.5 C 06/20/20 08:00 Pulse 68 06/20/20 08:00 Resp 16 06/20/20 08:00 BP 111/64 06/20/20 08:00 Pulse Ox 97 06/20/20 08:00 Weight - Most Recent: 68.039 kg Lab Results - Last 24 Hours: Laboratory Results - last 24 hr 06/19/20 06/19/20 06/19/20 Range/Units 07:45 08:22 09:04 WBC 11.28 H (4.0-11.0) K/uL RBC 4.24 L (4.30-5.90) M/uL Hgb 13.8 (12.0-16.0) g/dL Hct 40.3 (36.0-46.0) % MCV 95.0 (80.0-98.0) fL MCH 32.5 H (27.0-32.0) pg MCHC 34.2 (31.0-37.0) g/dL RDW Std Deviation 45.8 (28.0-62.0) fl RDW Coeff of Susan 13 (11.0-15.0) % Plt Count 195 (150-400) K/uL MPV 9.90 (7.40-12.00) fL Nucleated RBC % 0.0 /100WBC Nucleated RBCs # 0 K/uL Cord VBG pH (7.25-7.45) Cord VBG Base Excess (-10--2) Membrane Rupture NEGATIVE SARS-CoV-2 RNA (VINOD) NEGATIVE (NEGATIVE) Blood Type Antibody Screen Screen RhIG Candidate? Rhogam Indicated KB Screen KB Cells Counted KB Red Cells Counted KB % Cells Doses of RhIg Required 06/19/20 06/19/20 06/19/20 Range/Units 09:08 11:28 13:12 WBC (4.0-11.0) K/uL RBC (4.30-5.90) M/uL Hgb (12.0-16.0) g/dL Hct (36.0-46.0) % MCV (80.0-98.0) fL MCH (27.0-32.0) pg MCHC (31.0-37.0) g/dL RDW Std Deviation (28.0-62.0) fl RDW Coeff of Susan (11.0-15.0) % Plt Count (150-400) K/uL MPV (7.40-12.00) fL Nucleated RBC % /100WBC Nucleated RBCs # K/uL Cord VBG pH 7.356 (7.25-7.45) Cord VBG Base Excess -3 (-10--2) Membrane Rupture SARS-CoV-2 RNA (VINOD) (NEGATIVE) Blood Type O POSITIVE Antibody Screen NEGATIVE Screen Cancelled RhIG Candidate? Cancelled Rhogam Indicated YES, BABY RH POS H KB Screen SEE NOTE KB Cells Counted 0 KB Red Cells Counted 2082 KB % Cells 0.00 Doses of RhIg Required 1 06/20/20 Range/Units 06:40 WBC (4.0-11.0) K/uL RBC (4.30-5.90) M/uL Hgb 10.9 L (12.0-16.0) g/dL Hct 31.7 L (36.0-46.0) % MCV (80.0-98.0) fL MCH (27.0-32.0) pg MCHC (31.0-37.0) g/dL RDW Std Deviation (28.0-62.0) fl RDW Coeff of Susan (11.0-15.0) % Plt Count (150-400) K/uL MPV (7.40-12.00) fL Nucleated RBC % /100WBC Nucleated RBCs # K/uL Cord VBG pH (7.25-7.45) Cord VBG Base Excess (-10--2) Membrane Rupture SARS-CoV-2 RNA (VINOD) (NEGATIVE) Blood Type Antibody Screen Screen RhIG Candidate? Rhogam Indicated KB Screen KB Cells Counted KB Red Cells Counted KB % Cells Doses of RhIg Required Med Orders - Current: Current Medications Acetaminophen (Acetaminophen 500 Mg Tab) 500 mg PO Q4H PRN PRN Reason: Pain Acetaminophen (Acetaminophen 500 Mg Tab) 1,000 mg PO Q4H PRN PRN Reason: Pain Last Admin: 06/20/20 02:07 Dose: 1,000 mg Documented by: Benzocaine/Menthol (Benzocaine/Menthol 20%-0.5% [place] 78 Gm Cannister) 78 gm TOP ASDIRECTED PRN PRN Reason: Perineal Comfort Measure Last Admin: 06/19/20 13:56 Dose: 78 gm Documented by: Bisacodyl (Bisacodyl 10 Mg Supp) 10 mg RECTAL ONETIME PRN PRN Reason: Constipation Docusate Sodium (Docusate Sodium 100 Mg Cap) 100 mg PO BID PRN PRN Reason: Constipation Emollient Ointment (Lanolin 100% Cream 7 Gm Tube) 0 gm TOP ASDIRECTED PRN PRN Reason: Sore Nipples Last Admin: 06/19/20 13:55 Dose: 7 gm Documented by: Ephedrine Sulfate (Ephedrine 50 Mg/Ml Sdv) 10 mg IVPUSH Q5M PRN PRN Reason: Hypotension Ibuprofen (Ibuprofen 400 Mg Tab) 400 mg PO Q4H PRN PRN Reason: Pain Ibuprofen (Ibuprofen 800 Mg Tab) 800 mg PO Q6H PRN PRN Reason: Pain Last Admin: 06/20/20 04:35 Dose: 800 mg Documented by: Oxycodone HCl (Oxycodone 5 Mg Tab) 5 mg PO Q2H PRN PRN Reason: Pain Phenylephrine HCl (Phenylephrine/Normal Saline 100 Mcg/Ml 10 Ml Syringe) 0.1 mg IVPUSH Q5M PRN PRN Reason: Hypotension Sodium Chloride (Sodium Chloride 0.9% 10 Ml Syringe) 10 ml FLUSH ASDIRECTED PRN PRN Reason: Keep Vein Open Sodium Chloride (Sodium Chloride 0.9% 2.5 Ml Syringe) 2.5 ml FLUSH ASDIRECTED PRN PRN Reason: Keep Vein Open Sodium Chloride (Sodium Chloride 0.9% 10 Ml Sdv) 10 ml IV ASDIRECTED PRN PRN Reason: IV Use Witch Edith (Witch Edith Medicated Pads 40/Jar) 1 pad TOP ASDIRECTED PRN PRN Reason: comfort care Last Admin: 06/19/20 13:56 Dose: 1 pad Documented by: Discontinued Medications Butorphanol Tartrate (Butorphanol 1 Mg/Ml Sdv) 1 mg IVPUSH Q1H PRN PRN Reason: Pain Carboprost Tromethamine (Carboprost Tromethamine 250 Mcg/1 Ml Amp) 250 mcg IM ASDIRECTED PRN PRN Reason: Post Hemorrhage Fentanyl (Fentanyl 100 Mcg/2 Ml Sdv) Confirm Administered Dose 100 mcg .ROUTE .[employer] ONE Stop: 06/19/20 08:26 Last Admin: 06/20/20 07:31 Dose: Not Given Documented by: Ropivacaine (Naropin 0.2%) Confirm Administered Dose 100 mls @ as directed .ROUTE .[employer] ONE Stop: 06/19/20 08:26 Last Admin: 06/20/20 07:31 Dose: Not Given Documented by: Lactated Ringer's (Ringers, Lactated) 1,000 mls @ 150 mls/hr IV ASDIRECTED [facility] Last Admin: 06/19/20 10:30 Dose: 500 mls/hr Documented by: Oxytocin/Sodium Chloride (Oxytocin 30 Unit/500 Ml-Ns) 30 unit in 500 mls @ 999 mls/hr IV TITRATE [facility] Last Admin: 06/19/20 11:36 Dose: 500 mls/hr Documented by: Tranexamic Acid 1,000 mg/ (Sodium Chloride) 110 mls @ 660 mls/hr IV ONETIME PRN PRN Reason: Bleeding Lidocaine HCl (Lidocaine 1% 50 Ml Mdv) 50 ml INJECT ONETIME PRN PRN Reason: Laceration repair Methylergonovine Maleate (Methylergonovine 0.2 Mg/1 Ml Amp) 0.2 mg IM ASDIRECTED PRN PRN Reason: Post Hemorrhage Misoprostol (Misoprostol 200 Mcg Tab) 200 mcg PO ONETIME PRN PRN Reason: Post Hemorrhage Nalbuphine HCl (Nalbuphine 10 Mg/1 Ml Vial) 10 mg IVPUSH Q1H PRN PRN Reason: Pain (severe 7-10) Ondansetron HCl (Ondansetron 4 Mg/2 Ml Sdv) 4 mg IVPUSH Q4H PRN PRN Reason: Nausea/Vomiting Last Admin: 06/19/20 08:50 Dose: 4 mg Documented by: Sterile Water (Water For Irrigation,Sterile 1,000 Ml Container) 1,000 ml IRR ASDIRECTED PRN PRN Reason: delivery - Interaction Disposition, : [place] in Room with Family Interaction: Holding Infant Feeding: Breastfed Infant; Nursed Well Support Person: - Recovery Exam Fundal Tone: Firm Fundal Level: 1 Fingerbreadths Below Umbilicus Fundal Placement: Midline Lochia Amount: Scant Lochia Color: Rubra/Red Perineum Description: Intact, Minimal Bruising/Swelling Episiotomy/Laceration: None Bladder Status: Voiding - Exam General: Alert, Oriented Lungs: Normal Respiratory Effort GI/Abdominal Exam: Soft, Non-Tender, No Mass Extremities: Normal Range of Motion, Non-Tender, No Pedal Edema Skin: Warm, Dry, Intact Neurological: No New Focal Deficit Psy/Mental Status: Alert, Normal Affect, Normal Mood - Problem List & Annotations (1) Vaginal delivery SNOMED Code(s): 637201980 Code(s): O80 - ENCOUNTER FOR FULL-TERM UNCOMPLICATED DELIVERY Status: Acute Current Visit: Yes - Problem List Review Problem List Initiated/Reviewed/Updated: Yes - Assessment Assessment:: PPD#1 after , stable minimal lochia, minimal pain, would like to be discharged today. - Plan Plan:: Discharge instructions reviewed.
== END 2020-06-20 17:00 | disposition home or self-care (01) | DRG 560 ==
LOC: MW.OBCHECK 07:34 → MW.OB 07:35 → MW.OBCHECK 11:27 → OBSVTOIN 11:28 → MERGE 11:28 → MW.OB 15:00
PROVIDERS: ADMIT Obstetrics & Gynecology; ATTEND Obstetrics & Gynecology
PROC: 10E0XZZ Delivery of Products of Conception, External Approach (ICD-10-PCS; principal; 2020-06-19)
PROC: 10907ZC Drainage of Amniotic Fluid, Therapeutic from Products of Conception, Via Natural or Artificial Opening (ICD-10-PCS; 2020-06-19)
PROC: 3E0R3BZ Introduction of Anesthetic Agent into Spinal Canal, Percutaneous Approach (ICD-10-PCS; 2020-06-19)
PROC: 00HU33Z Insertion of Infusion Device into Spinal Canal, Percutaneous Approach (ICD-10-PCS; 2020-06-19)
DX: O48.0 Post-term pregnancy (principal); Z3A.40 40 weeks gestation of pregnancy; Z37.0 Single live birth; O66.0 Obstructed labor due to shoulder dystocia; Z20.822 Contact with and (suspected) exposure to COVID-19
CPT/HCPCS: 36415; 36430; 59025; 59409; 82803; 84112; 85014; 85018; 85027; 85460; 86592; 86850; 86900; 86901; A9270-GY; J2405; J2590; J2792; J2795; J3010; J7120; U0002